=== PATIENT | male | born 1945 | race Caucasian/White ===

== ENCOUNTER 2025-06-20 11:35 | Observation (INO) | payer MEDICARE ==
[2025-06-20 12:27] LABS: #Basophils 0.03 10x3/uL (0.0-0.2); #Eosinophils 0.04 10x3/uL (0.0-0.5); #Monocytes 1.10 10x3/uL (0.0-1.1); #Neutrophils 13.10 10x3/uL (1.5-8.4); %Basophils 0.2 % (0.0-2.0); %Eosinophils 0.3 % (0.0-6.0); %Lymphocytes 3.4 % (18.0-47.0); %Monocytes 7.4 % (0.0-10.0); %Neutrophils 88.4 % (40.0-75.0); Hematocrit 44.0 % (38.8-50.0); Hemoglobin 14.0 g/dL (13.5-17.5); Mean Corpuscular Hemoglobin 30.5 pg (27.0-33.0); Mean Corpuscular Volume 95.9 fL (81.2-95.1); Platelet Count 210 10x3/uL (150-450); Red Blood Cell (RBC) Count 4.59 10x6/uL (4.32-5.72); White Blood Cell (WBC) Count 14.82 10x3/uL (3.5-10.5)
[2025-06-20] MEDS ORDERED: Lidocaine Viscous Sol 2% 15 ml UD Cup ONE (12:40)
[2025-06-20] MEDS ORDERED: Milk Of Magnesia 30 ML UDCUP ONE (12:40)
[2025-06-20] MEDS ORDERED: Famotidine/PF 20 mg/2ml Vial ONE (12:41)
[2025-06-20 12:51] LABS: AST (SGOT) 38 U/L (11-34); Albumin 3.6 g/dL (3.1-4.5); Alkaline Phosphatase 73 U/L (40-110); Anion Gap 15 mmol/L (10-20); BUN (Urea Nitrogen) 14 mg/dL (8.4-25.7); Bilirubin, Total 1.0 mg/dL (0.3-1.2); Calc. Creatinine Clearance 0 mL/min (70-130); Calcium 8.6 mg/dL (7.8-10.44); Carbon Dioxide 24 mmol/L (23-31); Chloride 105 mmol/L (98-107); Globulin 3.2 g/dL (2.4-3.5); Glucose 136 mg/dL (83-110); Potassium 4.1 mmol/L (3.5-5.1); Sodium 140 mmol/L (136-145)
[2025-06-20 12:58] LABS: Troponin I Less than 0.010 ng/mL (< 0.028)
[2025-06-20 13:07] LABS: ALT (SGPT) 38 U/L (Less than 45)
[2025-06-20] MEDS ORDERED: Colchicine 0.6 MG TAB PO SCH ×2 (13:08→16:00)
[2025-06-20] MEDS ORDERED: Iopamidol 370 76% 100 ML VIAL ONE (13:47)
[2025-06-20] MEDS ORDERED: Bisacodyl 10 MG SUPP PR PRN (14:31)
[2025-06-20] MEDS ORDERED: Senokot S 8.6-50 MG TAB PO PRN (14:31)
[2025-06-20] MEDS ORDERED: Calcium Carbonate 500 MG ChewTAB PO PRN (14:31)
[2025-06-20] MEDS ORDERED: Ondansetron PF 4 MG/2 ML Vial IVP PRN (14:31)
[2025-06-20 17:38] VITALS: BMI 35.6
[2025-06-20] MEDS: Colchicine 0.6 MG TAB PO SCH ×2 (18:48→18:50)
[2025-06-20] MEDS: Ibuprofen 200 MG TAB PO PRN (20:08)
[2025-06-20] MEDS: PNEUMOC 20-VAL CONJ-DIP CRM/PF 0.5 ML SYRINGE IM ONE (20:10)
[2025-06-20] MEDS: Acetaminophen 325 MG TAB PO PRN (23:33)
[2025-06-20] MEDS: Melatonin 3 MG TAB PO PRN (23:33)
[2025-06-21 05:26] LABS: #Basophils 0.03 10x3/uL (0.0-0.2); #Eosinophils 0.06 10x3/uL (0.0-0.5); #Monocytes 1.27 10x3/uL (0.0-1.1); #Neutrophils 7.32 10x3/uL (1.5-8.4); %Basophils 0.3 % (0.0-2.0); %Eosinophils 0.6 % (0.0-6.0); %Lymphocytes 11.4 % (18.0-47.0); %Monocytes 12.9 % (0.0-10.0); %Neutrophils 74.3 % (40.0-75.0); Hematocrit 38.7 % (38.8-50.0); Hemoglobin 12.6 g/dL (13.5-17.5); Mean Corpuscular Hemoglobin 31.3 pg (27.0-33.0); Mean Corpuscular Volume 96.0 fL (81.2-95.1); Platelet Count 180 10x3/uL (150-450); Red Blood Cell (RBC) Count 4.03 10x6/uL (4.32-5.72); White Blood Cell (WBC) Count 9.85 10x3/uL (3.5-10.5)
[2025-06-21 05:40] LABS: Anion Gap 10 mmol/L (10-20); BUN (Urea Nitrogen) 16 mg/dL (8.4-25.7); Calc. Creatinine Clearance 112 mL/min (70-130); Calcium 8.5 mg/dL (7.8-10.44); Carbon Dioxide 28 mmol/L (23-31); Chloride 104 mmol/L (98-107); Glucose 123 mg/dL (83-110); Potassium 3.8 mmol/L (3.5-5.1); Sodium 138 mmol/L (136-145)
[2025-06-21] MEDS: Colchicine 0.6 MG TAB PO SCH (08:18)
[2025-06-21] MEDS: Enoxaparin 40 MG (0.4 mL) SYRINGE SC SCH (08:18)
[2025-06-21 12:03] VITALS: BP 137/80; TEMP 97.9
== END 2025-06-21 12:49 | disposition home or self-care (01) ==
LOC: CSHERS 11:35 → CSHERHOLD 14:28 → CSHTELE 17:58
PROVIDERS: ADMIT Family Medicine; ATTEND Physician Assistant
PROC: B24BZZZ Ultrasonography of Heart with Aorta (ICD-10-PCS; principal; 2025-06-20)
DX: I30.9 Acute pericarditis, unspecified (principal); I10 Essential (primary) hypertension; R73.9 Hyperglycemia, unspecified; M19.90 Unspecified osteoarthritis, unspecified site; E66.812 Obesity, class 2; Z68.36 Body mass index [BMI] 36.0-36.9, adult; Z98.41 Cataract extraction status, right eye; Z98.42 Cataract extraction status, left eye; Z90.49 Acquired absence of other specified parts of digestive tract; Z88.2 Allergy status to sulfonamides
CPT/HCPCS: 71275; 80048; 80053; 83036; 83880; 84484; 85025 ×2; 93005; 93306; 94760; 96372; 96374; 99285; G0378 ×3; J1650; Q9967; 36415; 93010; J2270

== ENCOUNTER 2025-07-01 14:46 | Emergency (ER) | payer MEDICARE ==
[2025-07-01 15:34] LABS: Actual Bicarbonate (HCO3v) 23.7 mEq/L (22-28); Analyzer IN Cardio CS ER; Base Excess 1.0 mEq/L (-2 - +2); Calcium, Ionized (venous) 1.06 mmol/L (1.16-1.32); Chloride (VBG) 102 mmol/L (98-106); Critical Notified By: Udy, RRT; Hematocrit-VBG 41 % (42.0-52.0); Hemoglobin (Hb) 14.0 g/dL (12.6-17.4); Potassium (VBG) 4.48 mmol/L (3.70-5.30); Puncture Site Other Site; Sodium 136 mmol/L (133-146)
[2025-07-01] MEDS ORDERED: Acetaminophen 500 MG TAB ONE (15:38)
[2025-07-01 15:42] LABS: #Basophils 0.03 10x3/uL (0.0-0.2); #Eosinophils Less than 0.03 10x3/uL (0.0-0.5); #Monocytes 1.15 10x3/uL (0.0-1.1); #Neutrophils 12.35 10x3/uL (1.5-8.4); %Basophils 0.2 % (0.0-2.0); %Eosinophils 0.1 % (0.0-6.0); %Lymphocytes 6.8 % (18.0-47.0); %Monocytes 7.9 % (0.0-10.0); %Neutrophils 84.5 % (40.0-75.0); Hematocrit 37.8 % (38.8-50.0); Hemoglobin 12.2 g/dL (13.5-17.5); Mean Corpuscular Hemoglobin 30.3 pg (27.0-33.0); Mean Corpuscular Volume 93.8 fL (81.2-95.1); Platelet Count 351 10x3/uL (150-450); Red Blood Cell (RBC) Count 4.03 10x6/uL (4.32-5.72); White Blood Cell (WBC) Count 14.61 10x3/uL (3.5-10.5)
[2025-07-01 16:00] LABS: Troponin I 0.026 ng/mL (< 0.028)
== END 2025-07-01 17:59 ==
LOC: CSHERS 14:46
DX: I31.39 Other pericardial effusion (noninflammatory) (principal); R53.83 Other fatigue; R06.02 Shortness of breath
CPT/HCPCS: 36415; 71250; 82550; 82805; 83605; 83880; 84484; 85025; 87426; 93005; 94640